=== PATIENT | female | born 1930 | race Caucasian/White ===

== ENCOUNTER 2020-03-08 09:12 | Observation (INO) ==
[2020-03-08] MEDS ORDERED: CEFAZOLIN 250 MG/ML 1 GM VIAL ONE (10:04)
[2020-03-08] MEDS ORDERED: MIDAZOLAM HCL 5 MG/ML 1 ML VIAL ONE (10:04)
[2020-03-08] MEDS ORDERED: LIDOCAINE HCL 1% 20 ML VIAL ONE (10:04)
[2020-03-08] MEDS ORDERED: BUPIVACAINE 0.25% 30 ML VIAL ONE (10:04)
[2020-03-08] MEDS ORDERED: BACITRACIN INJ 50,000 UNIT VIAL ONE (10:04)
[2020-03-08] MEDS ORDERED: fentaNYL citrate 100 MCG/2 ML VIAL ONE (10:04)
[2020-03-08] MEDS ORDERED: WATER, STERILE FOR INJ 10 ML VIAL ONE (10:05)
--- NOTE | 2020-03-08 10:05 | Pre Anesthesia Assessment ---
Date of Service March 08, 2020 Pre Sedation Assessment Vital Signs Temp Pulse Resp BP Pulse Ox 03/08/20 09:35 36.9 C 76 18 204/70 H 100 Cardiovascular RRR, no murmur, no edema Respiratory normal respiratory effort, lungs clear to auscultation Pre-Sedation Airway Assessment Smoking Status: Never smoker Hx Sleep Apnea: No Short, Thick Neck: No Thyromental Distance: > or= 3.5 Finger Breadths Oral Cavity: + Dentures Mallampati Class: III ASA: ASA2 NPO Status Date of Last Intake of Fluids: 03/08/20 Time of Last Intake of Fluids: 06:00 Date of Last Intake of Solid Food: 03/07/20 Time of Last Intake of Solid Foods: 18:00 Procedure Planning Contraindications for Sedation: none Current Medications Reviewed: Yes Notes The planned sedation has been discussed with the patient. Informed Consent was obtained. I have identified the patient, determined the appropriateness of sedation and have assessed the patient immediately prior to the procedure. All medicine(s) and interventions are by my order.
--- NOTE | 2020-03-08 10:05 | History & Physical Bridge Note ---
Date of Service March 08, 2020 History & Physical Bridge Note I have examined the patient, reviewed the History & Physical and in the interval since the performance of the History & Physical I have noted the following changes of clinical significance: after discussion with her family pt has agreed to pacemaker implantation
[2020-03-08] MEDS ORDERED: NURSING DECISION MEDICATION ONE (12:11)
--- NOTE | 2020-03-08 12:11 | Operative Report ---
Post Operative Report Pre & Post Diagnosis intermittent CHB Operation Date: 03/08/20 10:00 <No data on this case meets the specified criteria> I identified the patient and participated in the time-out.: Yes Procedure Operation Date: 03/08/20 10:00 Actual Procedures p Pacer with A/V Leads (Dual) - Elisa Simmons DO s Bundle of his Recording - Elisa Simmons DO Surgeon Elisa Simmons, Maintenance Mgr none Estimated Blood Loss 20 Findings Consistent with Post-Op Diagnosis Specimens none Description of Procedure see official report I attest to the content of the Intraoperative Record and any orders documented therein. Any exceptions are noted below.
--- NOTE | 2020-03-08 12:11 | Post Anesthesia Assessment ---
Date of Service March 08, 2020 Post Sedation Assessment Vital Signs Temp Pulse Resp BP Pulse Ox 03/08/20 09:35 36.9 C 76 18 204/70 H 100 Recovery Score Activity: Moves 4 extremities Respiration: Deep Breath/Cough Circulation: +/-20% PreAnes Value Consciousness: Fully Awake Oxygen Saturation: > 92% On Room Air Discharge Sedation Level of Care: Fast Track Phase II Post Sedation Plan On clinical assessment, the patient appears to have tolerated the sedation without complications. Patient is recovering as anticipated. Patient will continue to be monitored by nursing and may be discharged when sedation discharge criteria are met per below protocol. Upon Completions of procedure up to 15 minutes continue every 5 minute vital signs and the P.A.R. score; then discharge to a Phase I or Fast Track to Phase II per the following guidelines: * Discharge Patient to appropriate Phase II area if PAR is 8 or greater or return to pre- procedure baseline. The post - procedure orders will be as directed. * If PAR score is less than 8 or not return to pre-procedure baseline then patient will follow Phase I monitoring till PAR is reached for Phase II. The Phase I may be done in procedure room or may call to secure a Phase I area. * If naloxone or flumazenil are used for reversal, hold in Phase I for continued monitoring from when last reversal dose was given for a minimum of 60 minutes or longer pending the nurse and/or physician discretion of patient condition before discharge to Phase II. Please call the Sedation Physician to re-evaluate and complete post-note for discharge to Phase II area. Do NOT discharge from procedure sedation or Phase 1 until post- sedation evaluation note is complete by procedure /sedation MD Sedation Discharge Instructions to be given to the patient at discharge to home.
--- NOTE | 2020-03-08 12:20 | Discharge Summary ---
Date of Service March 09, 2020 Admission HPI Per Admitting Provider Pt with fatigue admitted for ppm Admission Exam Per Admitting Provider aaox3, NAD NC/AT, EOMI Supple No JVD Nrl S1/S2, No murmur CTA b/l no w/r/r soft nt/nd no LE edema b/l skin intact no focal deficits Principal Diagnosis Intermittent CHB s/p dual chamber ppm Discharge Exam aaox3, NAD NC/AT, EOMI Supple No JVD Nrl S1/S2, No murmur CTA b/l no w/r/r soft nt/nd no LE edema b/l skin intact no focal deficits left pectoral incision intact, no hematoma mild ecchymosis Discharge Data Allergies Allergy/AdvReac Type Severity Reaction Status Date / Time No Known Allergies Allergy Verified 03/08/20 09:39 Procedures Performed Operation Date: 03/08/20 10:00 Actual Procedures p Pacer with A/V Leads (Dual) - Elisa Simmons DO s Bundle of his Recording - Elisa Simmons DO Ordered Studies CXR: No PTX, leads in position ECG: AP-DIRECTOR OF LABOR AND DELIVERY Pacemaker Interrogation: Normal function Stable lead testing since implant 03/08/20 06:45 EP Lab Images for PACS ONCE Hospital Course (1) Intermittent complete heart block: Total Time Total Time Spent Total Time Spent (In Minutes): 40 Total Time Includes: Examination of the Patient, Discharge Planning, Medication Reconciliation and Other Discharge Plan Discharge Items Patient Disposition: Home - Self-Care Reason For Visit: AVB,DCP INSERTION Discharge Diagnosis: intermittent CHB s/p ppm Condition on Discharge: Good Activity: As commented below Activity Comment: do not lift the left elbow over the left shoulder for 1 month Lifting: No more than 10 pounds Lifting Comment: do not lift more than 10 pounds with the left arm for 2 weeks Bathing: Keep incision dry Bathing Comment: keep dressing on & dry until wound check next week 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 Call non-emergency contact if: you have any medication questions Follow-up/Referrals: Denita Cooley MD [Primary Care Provider] - Diet: Heart Healthy Addtl Attending Provider Instructions: Device and wound check next week in [place] Pending Studies at Discharge: No Stand-Alone Forms: My [facility] Medications and DC Order Prescriptions: Continued furosemide 20 mg Tablet 20 mg PO DAILY RF: 0 ranolazine 500 mg Tablet Extended Release 12 Hr 500 mg PO BID RF: 0 aspirin [Aspir-81] 81 mg Tablet,Delayed Release (Dr/Ec) 81 mg PO DAILY RF: 0 metformin 500 mg Tablet Extended Release 24 Hr 500 mg PO BID RF: 0 magnesium 200 mg Tablet 200 mg PO DAILY RF: 0 losartan 50 mg Tablet 50 mg PO DAILY RF: 0 isosorbide mononitrate 60 mg Tablet Extended Release 24 Hr 60 mg PO DAILY RF: 0 atenolol 50 mg Tablet 50 mg PO DAILY RF: 0 omega 7-smy-qyo-fish oil [Fish Oil] 1,000 mg (120 mg-180 mg) Capsule 1 cap PO DAILY RF: 0 Discharge Orders: Discharge Order (Routine); Ordered 03/09/20 Ordered By: Elisa Simmons Admission Data Admit Date/Time: 03/08/20 10:57 Attending Provider: Elisa Simmons Admit Provider: Elisa Simmons Primary Care Provider: Denita Cooley
[2020-03-08] MEDS: ATENOLOL 50 MG TABLET PO SCH (13:58)
--- NOTE | 2020-03-08 14:08 | Electrocardiogram Report ---
Test Reason : Blood Pressure : / mmHG Vent. Rate : 073 BPM Atrial Rate : 073 BPM P-R Int : 202 ms QRS Dur : 094 ms QT Int : 430 ms P-R-T Axes : 064 -09 126 degrees QTc Int : 473 ms Atrial-sensed ventricular-paced rhythm Abnormal ECG No previous ECGs available Confirmed by Yogi Mcallister ([id number]) on 03/08/2020 2:08:05 PM Referred By: Elisa Simmons Confirmed By:Yogi Mcallister
[2020-03-08] MEDS: ACETAMINOPHEN 325 MG TAB PO PRN (20:56)
[2020-03-08] MEDS: METFORMIN HCL ER 500 MG TABCR PO SCH (20:57)
[2020-03-08] MEDS: RANOLAZINE 500 MG ER TAB PO SCH (20:58)
[2020-03-09] MEDS: ACETAMINOPHEN 325 MG TAB PO PRN (01:19)
[2020-03-09] MEDS: RANOLAZINE 500 MG ER TAB PO SCH (08:48)
[2020-03-09] MEDS: ATENOLOL 50 MG TABLET PO SCH (08:48)
[2020-03-09] MEDS: METFORMIN HCL ER 500 MG TABCR PO SCH (08:52)
[2020-03-09] MEDS ORDERED: LOSARTAN POTASSIUM 50 MG TAB PO SCH (09:00)
[2020-03-09] MEDS ORDERED: OMEGA-3 (PURIFIED FISH OIL) 1 GM CAP PO SCH (09:00)
[2020-03-09] MEDS ORDERED: MAGNESIUM OXIDE 400 MG TAB PO SCH (09:00)
[2020-03-09] MEDS ORDERED: ASPIRIN 81 MG ECTAB PO SCH (09:00)
[2020-03-09] MEDS ORDERED: ISOSORBIDE MONO EXTENDED REL 60 MG TABCR PO SCH (09:00)
[2020-03-09] MEDS ORDERED: FUROSEMIDE 20 MG TAB PO SCH (09:00)
--- NOTE | 2020-03-09 09:03 | XRay Report ---
TWO VIEW CHEST CLINICAL HISTORY: Status post pacemaker implantation. FINDINGS: PA and lateral chest radiographs are obtained. No prior studies are available for compariso n at the time of dictation. The patient is status post midline sternotomy. A 2-lead cardiac pacemake r has been placed and partially obscures left upper chest. Leads project over the right atrial append age and the right ventricle. Mitral annulus is densely calcified. A coronary artery stent is suspecte d. The heart is top normal in size noting atherosclerotic calcification of the thoracic aorta. The pu lmonary vasculature is noncongested. There is bibasilar scarring/atelectasis. No airspace consolidati on or pleural effusion is seen. There is no pneumothorax. The skeletal structures are osteopenic. The bony thorax appears intact. Degenerative change is noted in the shoulders and thoracic spine. IMPRESSION: 1. A 2-lead cardiac pacemaker has been placed as above. No pneumothorax is seen post procedure. 2. There is no radiographic evidence of congestive failure. 3. No airspace consolidation or pleural effusion is identified. ACT 112: Negative or not required by law. Electronically signed by: Darrius Nixon M.D. 03/09/2020 9:01 AM
--- NOTE | 2020-03-16 12:16 | Operative Report (OR) ---
DATE OF OPERATION: 03/08/2020 PREOPERATIVE DIAGNOSIS: Intermittent high-degree atrioventricular block. POSTOPERATIVE DIAGNOSIS: Intermittent high-degree atrioventricular block. PROCEDURE: Dual chamber rate responsive permanent pacemaker (with the right ventricular lead positioned over the right and with the left bundle along with intracardiac EGM mapping of the His bundle region under fluoroscopic guidance). SURGEON: Elisa Simmons DO. ASSISTANTS: None. ANESTHESIA: Monitored conscious sedation administered under my supervision by Arina Gaston. Start time 10:28, end time 12:04. Total of 3 mg of Versed and 75 mcg of fentanyl. IV FLUIDS: 30 mL. ANTIBIOTICS: 1 gram of Ancef. CONTRAST: 12 mL. BLOOD LOSS: 20 mL. URINE OUTPUT: None. SPECIMENS: None. FINDINGS: See below. DRAINS: None. INDICATIONS: This is an 89-year-old female who has a past medical history for coronary artery disease with a CABG x2 at [facility] in 1994, GERARDO to LAD, SVG to RCA, she had PCI to the circ; hypertension; hyperlipidemia; diabetes and chronic heart failure with preserved ejection fraction secondary to diastolic and valvular dysfunction [place] Heart Association class 3; marked first degree AV block; moderate aortic stenosis; peripheral arterial disease and intolerance to statins. The patient recently had a monitor that showed intermittent high-degree complete heart block. In addition to her prolonged first degree and necessary to have beta-fito, she was recommended a pacemaker. CONSENT: Consent was obtained prior to the patient going into the Electrophysiology Lab. The patient was informed of the risks, benefits and alternative procedure. Risks include but not limited to sudden cardiac ; cardiac arrhythmia; cerebrovascular accident; myocardial infarction; injury to the blood vessels, chamber of the heart, lung; bleeding and infection. The patient understood these risks and agreed with procedure as planned. Informed consent was obtained. DESCRIPTION OF THE PROCEDURE: The patient was brought into Electrophysiology Lab in a fasting state. She was connected to continuous color television console monitor. Timeout was performed to ensure patient identity and procedure correctly. The patient was prepped and draped over the left infraclavicular space in normal surgical standard fashion. Monitored conscious sedation was given throughout the procedure for the patient's comfort level. [place] precautions were maintained throughout the procedure. She received prophylactic antibiotics prior to incision. A 10 mL of 1% lidocaine, bupivacaine mixture were given in the left deltopectoral groove. Incision was made in left deltopectoral groove. Blunt dissection performed down to identify cephalic vein. Cephalic vein was identified and isolated using 0 silk ties. The vein was nicked with an 11 blade and a guidewire was inserted without any resistance. An 8-Gambian sheath was inserted over the guidewire without any resistance. Dilator removed and the second guidewire was inserted through the 8-Gambian sheath to allow for retained venous access. The sheath was removed, flushed, reinserted over the dilator and then reinserted along the guidewire. The guidewire and dilator were removed. Then, the preformed His sheath was advanced into the right ventricle over a Glidewire without any resistance. The Glidewire and dilator removed. Then, the lead was advanced into the sheath and intracardiac electrogram mapping of the His bundle was performed. The AH was found to be 191 milliseconds and the HV was 88 milliseconds. I then marked on the monitor screen where the His bundle region was, then I aria an imaginary line to the apex and marked 2 cm below this His bundle on that line. I then positioned the catheter down in the second 2 cm below the His bundle region making sure that the catheter was foreshortened by counter clocking it. Then I went to the [place] 30 to make sure that the catheter was up against the septum. Then, I gave intermittent brief turns screwing the lead through the septum, watching the electrogram with each turn, seeing the V1 transformed to right bundle morphology and the QRS in the lateral leads decreased in duration. I had actually nice signals and then I gave a puff of contrast through the sheath to see that the sheath was right up against the septum and that the lead was within the septum. Then the sheath was slit under fluoroscopic guidance. I left the 8-Gambian sheath then until I positioned the right atrial lead, so a second sheath was inserted over the retained guidewire without any resistance. The guidewire and dilator removed. The right atrial lead was then advanced into right atrium and positioned interatrial appendage under fluoroscopic guidance. There was adequate pacing and sensing thresholds and no diaphragmatic stimulation with high output pacing. The 8-Gambian sheath was peeled away and lead was fixated to pectoralis muscle using 0 silk suture. Then, the 8-Gambian sheath over the left bundle RV lead was slit and the lead was fixated to pectoralis muscle using 0 silk suture. The pacemaker pocket was created using blunt dissection over the pectoralis muscle within the pectoralis fascia. Then, the leads were attached to the pulse generator making sure that the pins were in appropriate position, passed set screws and set screws were tightened. The pulse generator was placed in an antibiotic Tyrx pouch, then placed in the pocket making sure that the leads were lying flat beneath the device. The incision was then closed in 3-layer fashion with 2-0 Vicryl interrupted suture, followed by 3-0 Vicryl interrupted suture, followed by 4-0 Monocryl running stitch and Dermabond was applied followed then by Telfa and micropore dressing. EQUIPMENT: 1. The pulse generator is a [employer] XT DR TRAVIS Sotelo [id number], serial number [id number]. 2. Right atrial lead: Medtronic 5076-52 cm, serial number [id number]. 3. Right ventricular lead: Medtronic 3830-69 cm, serial number [id number]. INTRAOPERATIVE TESTIN. Right atrial lead: P waves 1.9 millivolts, impedance 458 ohms, threshold 0.5 volts at 0.5 milliseconds. 2. Right ventricular lead: R waves 7.3 millivolts, impedance 706 ohms, threshold 0.8 volts at 0.5 milliseconds. FINAL PARAMETERS THROUGH THE DEVICE: 1. Right atrial lead: P waves 1.6 millivolts, impedance 380 ohms, threshold 0.75 volts at 0.4 milliseconds. 2. Right ventricular lead: R waves 5.1 millivolts, impedance 703 ohms, threshold 0.75 volts at 0.4 milliseconds. FINAL PARAMETERS: DDD 60/120. Right atrial and right ventricular amplitude 3.5 volts, pulse width 0.4 milliseconds, sensitivity 0.3 millivolts. IMPRESSION: Successful dual chamber rate responsive permanent pacemaker (the RV lead is in the left bundle position) with intracardiac electrogram His bundle mapping all under fluoroscopic guidance secondary to intermittent high-degree AV block. PLAN: Monitor the patient overnight, 12-lead ECG, chest x-ray. She cannot lift the left elbow or left shoulder for 1 month. She cannot lift more than 10 pounds with the left arm for 2 weeks. She is to leave the dressing on and dry until her wound check next week. I attest to the content of the Intraoperative Record and any orders documented therein. Any exceptions are noted below. MTDD
== END 2020-03-09 12:06 | disposition home or self-care (01) ==
LOC: 2S 09:12 → EP 09:12